=== PATIENT | male | born 1970 | race Caucasian/White ===

== ENCOUNTER 2024-12-22 00:29 | Emergency (ER) | payer SELFPAY ==
[~2024-12-22] VITALS: Ht 180.3 cm; Wt 81.6 kg
[2024-12-22 00:57] VITALS: BP 148/99; TEMP 98.2
[2024-12-22 01:10] VITALS: O2SAT 98
== END 2024-12-22 01:12 | disposition home or self-care (01) ==
LOC: ER 00:50
DX: S09.90XA Unspecified injury of head, initial encounter (principal); Z53.21 Procedure and treatment not carried out due to patient leaving prior to being seen by health care provider; X58.XXXA Exposure to other specified factors, initial encounter; Y93.89 Activity, other specified; Y92.89 Other specified places as the place of occurrence of the external cause; Y99.8 Other external cause status